=== PATIENT | female | born 1995 | race Two or more races ===

== ENCOUNTER 2021-10-23 12:31 | Emergency (ER) | payer MEDICAID, OTHER ==
[~2021-10-23] VITALS: Ht 170.2 cm; Wt 113.4 kg
[2021-10-23 13:16] LABS: Urine Bacteria FEW /hpf (None Seen); Urine Blood Negative /uL (Negative); Urine Specific Gravity 1.006 (1.001-1.035); Urine WBC 17 /hpf (0 - 5)
[2021-10-23 13:56] VITALS: BP 144/84
[2021-10-23 14:08] LABS: Basophils # (auto) 0.1 10 ^3/uL (0-0.2); Basophils % (auto) 0.9 % (0.0-2.0); Eosinophils # (auto) 0.1 10 ^3/uL (0-0.8); Lymphocytes # (auto) 3.5 10 ^3/uL (0.4-5.4); Monocytes # (auto) 0.5 10 ^3/uL (0-1.3); Neutrophils # (auto) 6.5 10 ^3/uL (1.6-8.6); White Blood Cell 10.7 10^3/uL (4.4-10.8)
[2021-10-23 14:09] LABS: Eosinophils % (auto) 1.1 % (0.0-7.0); Hematocrit 37.1 % (36.0-46.0); Hemoglobin 12.2 g/dL (12.2-16.2); Lymphocytes % (auto) 32.3 % (10.0-50.0); Mean Corpuscular Hemoglobin 25.6 pg (28.0-32.0); Mean Corpuscular Hgb Conc. 32.9 g/dL (32.0-36.0); Mean Corpuscular Volume 77.8 fL (80.0-100.0); Monocytes % (auto) 4.7 % (0.0-12.0); Red Blood Cells 4.77 10^6/uL (4.0-5.20); Red Cell Distribution Width 15.1 % (11.8-14.3)
[2021-10-23 14:27] LABS: Calcium 9.1 mg/dL (8.5-10.1); Potassium 3.9 mmol/L (3.5-5.1)
[2021-10-23 14:29] LABS: BUN/Creatinine Ratio 15.7
[2021-10-23] MEDS ORDERED: IBUP800T27 PO (15:25)
== END 2021-10-23 15:31 | disposition home or self-care (01) ==
LOC: ER 12:31
DX: R07.89 Other chest pain (principal); Z32.02 Encounter for pregnancy test, result negative
CPT/HCPCS: 36415; 71045; 80048; 81001; 81025; 84484; 85025; 93005